=== PATIENT | male | born 1970 | race Caucasian/White ===

== ENCOUNTER → 2017-04-15 | Outpatient (REF) | payer BC, MEDICARE ==
[2017-04-15 15:54] LABS: BASO # 0.1 10^3/uL (0.0-0.2); BASO % 1.6 % (0.0-1.0); EOS # 0.2 10^3/uL (0.0-0.50); EOS % 1.9 % (0.0-3.0); IMMATURE GRANULOCYTE % 0.3 % (0-0); LYMPH # 3.4 10^3/uL (1.5-4.5); LYMPH % 37.9 % (24.0-44.0); MEAN CORPUSCULAR HGB CONC 34.4 g/dl (32.0-36.5); MEAN CORPUSCULAR VOLUME 84.4 fl (80.0-96.0); MONO # 0.7 10^3/uL (0.0-0.8); MONO % 7.9 % (0.0-5.0); NEUTROPHILS # 4.4 10^3/uL (1.8-7.7); NEUTROPHILS % 50.4 % (36.0-66.0); PLATELET COUNT, AUTOMATED 219 10^3/uL (150-450); RED CELL DISTRIBUTION WIDTH 13.2 % (11.5-14.5); WHITE BLOOD COUNT 8.8 10^3/uL (4.0-10.0)
[2017-04-15 17:45] LABS: ERYTHROCYTE SEDIMENTATION RATE 2 mm/hr (0-15)
== END ==
LOC: M SFHCPLAZ 13:50
PROVIDERS: ATTEND Internal Medicine Infectious Disease
DX: A46 Erysipelas (principal)

== ENCOUNTER → 2018-06-15 | Outpatient (REF) | payer BC, MEDICARE | LOC: M SFHCPLAZ 12:15 | PROVIDERS: ATTEND Internal Medicine Infectious Disease | DX: A46 Erysipelas (principal); I10 Essential (primary) hypertension ==